=== PATIENT | female | born 1995 | race Caucasian/White ===

== ENCOUNTER 2016-12-25 22:51 | Emergency (ER) | payer OTHER ==
[~2016-12-25] VITALS: Ht 160 cm; Wt 95.5 kg
[2016-12-25 22:58] VITALS: BP 149/91; PULSE 68; TEMP 98.9
== END 2016-12-26 00:16 | disposition home or self-care (01) ==
LOC: COL.ER 22:51
DX: S76.012A Strain of muscle, fascia and tendon of left hip, initial encounter (principal); M53.3 Sacrococcygeal disorders, not elsewhere classified; X50.0XXA Overexertion from strenuous movement or load, initial encounter
CPT/HCPCS: J1885